=== PATIENT | female | born 1965 | race Caucasian/White ===

== ENCOUNTER 2021-08-17 14:41 | Emergency (ER) | payer OTHER ==
[~2021-08-17] VITALS: Ht 162.6 cm; Wt 58.1 kg
--- NOTE | 2021-08-17 15:05 | NUR ---
Patient c/o abdominal pain. Urine sent to lab. IV placed, labs drawn.
[2021-08-17] MEDS ORDERED: IV NORMAL SALINE 1000 ML BAG IV ONE (15:15)
[2021-08-17] MEDS ORDERED: ONDANSETRON 4 MG/2 ML VIAL IV ONE (15:15)
[2021-08-17] MEDS ORDERED: MORPHINE SULFATE 2 MG/1 ML DISP.SYRIN IV ONE (15:15)
[2021-08-17] MEDS ORDERED: PANTOPRAZOLE SODIUM 40 MG VIAL IV ONE (15:15)
[2021-08-17 15:21] LABS: *BILIRUBIN,URIN NEGATIVE (NEGATIVE); *BLOOD, URINE NEGATIVE (NEGATIVE); *CLARITY,URINE CLEAR (CLEAR); *COLOR,URINE YELLOW (YELLOW); *KETONES,URINE NEGATIVE (NEGATIVE); *UROBILINOGEN,URINE 0.2 E.U./dl (NORMAL); LEUKOCYTE ESTERASE ,URINE TRACE (NEGATIVE); NITRITE, URINE NEGATIVE (NEGATIVE); UGLUCOSE NEGATIVE (NEGATIVE)
[2021-08-17 15:22] LABS: BACTERIA,URINE NONE SEEN /HPF (NONE SEEN); RBC,URINE 0-3 /HPF (0-3); WBC,URINE 0-3 /HPF (0-3)
[2021-08-17] MEDS ORDERED: PANTOPRAZOLE SODIUM 40 MG VIAL ONE (15:23)
[2021-08-17] MEDS ORDERED: MORPHINE SULFATE 2 MG/1 ML DISP.SYRIN ONE (15:23)
[2021-08-17] MEDS ORDERED: ONDANSETRON 4 MG/2 ML VIAL ONE (15:23)
[2021-08-17 15:43] LABS: HEMATOCRIT 40.6 % (31.2-41.9); MEAN CORPUSCULAR HEMOGLOBIN 33.1 uug (24.7-32.8); MEAN CORPUSCULAR VOLUME 94.4 fL (75.5-95.3); PLATELET COUNT (AUTO) 199 K/uL (179-408)
[2021-08-17 15:49] LABS: CREATININE 0.8 mg/dL (0.6-1.3); POTASSIUM 3.7 mmol/L (3.5-5.1)
[2021-08-17 15:55] LABS: BILIRUBIN,DIRECT 0.1 mg/dL (0.0-0.2); BILIRUBIN,TOTAL 0.5 mg/dL (0.2-1.0); TOTAL PROTEIN, SERUM 6.9 g/dL (6.4-8.2)
[2021-08-17 16:25] LABS: *URINE HCG, QUAL NEGATIVE (NEGATIVE)
[2021-08-17] MEDS ORDERED: KETOROLAC TROMETHAMINE 30 MG INJ IVP ONE (16:30)
[2021-08-17] MEDS ORDERED: SIMETHICONE 80 MG TAB.CHEW ONE (16:30)
[2021-08-17] MEDS ORDERED: KETOROLAC TROMETHAMINE 30 MG INJ ONE (16:30)
[2021-08-17] MEDS ORDERED: SIMETHICONE 80 MG TAB.CHEW PO ONE (16:30)
--- NOTE | 2021-08-17 16:30 | NUR ---
Srinivasa states she still has some pain. Toradol given as ordered.
--- NOTE | 2021-08-17 16:37 | NUR ---
Patient states pain has diminished some.
--- NOTE | 2021-08-17 16:39 | NUR ---
IV removed. Catheter intact and site benign. Pressure and 4x4 gauze applied to site. No bleeding noted.
--- NOTE | 2021-08-17 16:39 | NUR ---
DC and follow up instructions given and explained to patient who states she understands all instructions including no driving due to morphine, states relative will drive her home
[2021-08-18] MEDS ORDERED: ACET1TAB23 PO (18:37)
[2021-08-18] MEDS ORDERED: FAMO-132 PO (18:37)
== END 2021-08-17 16:39 | disposition home or self-care (01) ==
LOC: ER 14:41
DX: R10.9 Unspecified abdominal pain (principal); R00.1 Bradycardia, unspecified; Z87.898 Personal history of other specified conditions
CPT/HCPCS: 36415; 76856; 80048; 80076; 81001; 83690; 84703; 85025; 93005; 96361; 96374; 96375; 99285; C9113; J1885; J2270; J2405; A4663; J7030

== ENCOUNTER 2021-08-18 14:32 | Emergency (ER) | payer OTHER ==
[~2021-08-18] VITALS: Ht 162.6 cm; Wt 58.1 kg
[2021-08-18] MEDS ORDERED: DICYCLOMINE HCL LIQ 10 MG/5 ML UDC PO ONE (15:30)
[2021-08-18] MEDS ORDERED: MAG HYDROX/AL HYDROX/SIMETH 30 ML LIQUID UDC PO ONE (15:30)
[2021-08-18] MEDS ORDERED: LIDOCAINE VISCUS 2% 15 ML UDC MM ONE (15:30)
[2021-08-18] MEDS ORDERED: MAG HYDROX/AL HYDROX/SIMETH 30 ML LIQUID UDC ONE (15:52)
[2021-08-18] MEDS ORDERED: LIDOCAINE VISCUS 2% 15 ML UDC ONE (15:52)
[2021-08-18] MEDS ORDERED: DICYCLOMINE HCL LIQ 10 MG/5 ML UDC ONE (15:53)
[2021-08-18 16:26] LABS: HEMATOCRIT 38.1 % (31.2-41.9); MEAN CORPUSCULAR HEMOGLOBIN 32.9 uug (24.7-32.8); MEAN CORPUSCULAR VOLUME 95.2 fL (75.5-95.3); PLATELET COUNT (AUTO) 174 K/uL (179-408)
[2021-08-18 16:31] LABS: CREATININE 0.9 mg/dL (0.6-1.3); POTASSIUM 4.1 mmol/L (3.5-5.1)
[2021-08-18 16:38] LABS: BILIRUBIN,DIRECT 0.1 mg/dL (0.0-0.2); BILIRUBIN,TOTAL 0.5 mg/dL (0.2-1.0); TOTAL PROTEIN, SERUM 6.3 g/dL (6.4-8.2)
[2021-08-18] MEDS ORDERED: HYDROMORPHONE 1 MG/1 ML DISP.SYRIN IV ONE (16:45)
[2021-08-18] MEDS ORDERED: HYDROMORPHONE 1 MG/1 ML DISP.SYRIN ONE (16:48)
[2021-08-18] MEDS ORDERED: IV NORMAL SALINE 1000 ML BAG IV STA (17:32)
[2021-08-18 18:36] LABS: *BILIRUBIN,URIN NEGATIVE (NEGATIVE); *CLARITY,URINE CLEAR (CLEAR); *COLOR,URINE YELLOW (YELLOW); *KETONES,URINE NEGATIVE (NEGATIVE); *UROBILINOGEN,URINE 0.2 E.U./dl (NORMAL); LEUKOCYTE ESTERASE ,URINE TRACE (NEGATIVE); NITRITE, URINE NEGATIVE (NEGATIVE); PH,URINE 5.5 (5.0-8.0); UGLUCOSE NEGATIVE (NEGATIVE)
[2021-08-18] MEDS ORDERED: ACET1TAB23 PO (18:37)
[2021-08-18] MEDS ORDERED: FAMO-132 PO (18:37)
[2021-08-18 18:39] LABS: *BLOOD, URINE TRACE (NEGATIVE)
[2021-08-18 18:51] LABS: BACTERIA,URINE NONE SEEN /HPF (NONE SEEN); RBC,URINE 0-3 /HPF (0-3); SQUAMOUS EPITHELIAL CELL,UR FEW /HPF (NONE SEEN); WBC,URINE 0-3 /HPF (0-3)
--- NOTE | 2021-08-18 18:57 | NUR ---
removed IV intact, site okay, bandaged.
--- NOTE | 2021-08-18 18:58 | NUR ---
Gave pt RX and d/c instructions, pt verbalized understanding.
== END 2021-08-18 19:10 | disposition home or self-care (01) ==
LOC: ER 14:35
DX: R10.13 Epigastric pain (principal); N83.201 Unspecified ovarian cyst, right side; R00.1 Bradycardia, unspecified; R94.31 Abnormal electrocardiogram [ECG] [EKG]
CPT/HCPCS: 36415; 74176; 80048; 80076; 81001; 83605; 83690; 84484; 85025; 93005; 96361; 96374; 99285; J1170; 70030-TC; A4663; J7030